=== PATIENT | male | born 1945 | race Caucasian/White ===

== ENCOUNTER 2017-09-06 09:19 | Emergency (ER) | payer OTHER ==
[~2017-09-06] VITALS: Wt 90.7 kg
--- NOTE | ~2017-09-06 | HM ---
[place], [place] HOLTER MONITOR REPORT NAME: SHAD CARRERO UNIT #: [id number] ROOM: DOCTOR: KARMA PANTOJA MD BIRTHDATE: [birth year] DOS: 09/06/2017 HOLTER MONITOR REPORT AGE: 71. SEX: Male. RECORDING TIME: 47 hours and 59 minutes. FINDINGS: Baseline rhythm is normal sinus rhythm, average heart rate was 54, maximum heart rate 98 and minimum heart rate 35 at 6:55 a.m. Atrial fibrillation burden was 0%. No significant pauses were noted. No significant supraventricular tachycardia or ventricular tachycardia was noted. There were occasional ventricular ectopy and its burden is about 2.5%. He also has occasional supraventricular complexes (SVE burden is 1.7%). No significant arrhythmias or pauses noted on this Holter monitor. Karma Pantoja MD CM:HOLTER:HOLTER MONITOR REPORT [id number] KARMA PANTOJA MD
[~2017-09-06 09:19] MED LIST: ADVAIR 250/501 EA INH; AMOXICILLIN500 MG PO; EC NAPROSYN500 MG PO; LISINOPRIL/HCTZ1 TA5 PO; VITAMIN D2000 IU PO; ZITHROMAX500 MG PO; ZYRTEC10 MG PO
[2017-09-06] MEDS ORDERED: CLONIDINE HCL0.2 MG PO (09:26)
[2017-09-06] MEDS ORDERED: LISINOPRIL40 MG PO (09:27)
[2017-09-06] MEDS ORDERED: ATORVASTATIN CA10 M1 PO (09:27)
[2017-09-06] MEDS ORDERED: AMLODIPINE BESY10 MG PO (09:27)
[2017-09-06] MEDS ORDERED: HYDROCHLOROTHIA25 M1 PO (09:27)
[2017-09-06 09:51] LABS: BASO # 0.1 10*3/uL (0.0-0.1); EOS # 0.1 10*3/uL (0.0-0.4); EOS % 1.4 % (1.0-4.0); HEMATOCRIT 41.1 % (42.0-52.0); HEMOGLOBIN 13.8 g/dl (14.0-18.0); LYMPH # 2.3 10*3/uL (1.3-4.4); MEAN CELL VOLUME 96.7 fl (80.0-94.0); MEAN CORPUSCULAR HGB 32.5 pg (27.0-31.0); MEAN CORPUSCULAR HGB CONC 33.6 g/dl (33.0-37.0); MEAN PLATELET VOLUME 11.4 fl (9.6-12.3); MONO # 0.6 10*3/uL (0.1-1.0); MONO % 7.6 % (3.0-9.0); NEUT # 4.2 10*3/uL (2.3-7.9); NEUT % 57.7 % (47.0-73.0); PLATELET COUNT AUTOMATED 180 10*3/uL (130-400); RED BLOOD COUNT 4.25 10*6/uL (4.50-5.90); RED CELL DISTRI WIDTH 12.3 % (0-14.5); WHITE BLOOD COUNT 7.2 10*3/uL (4.8-10.8)
[2017-09-06 09:59] LABS: ACT PARTIAL THROMBO TIME 24.7 SECONDS (20.8-31.5); INTERNATIONAL NORM RATIO 1.1 (2.0-3.5)
[2017-09-06 10:06] LABS: ALBUMIN 3.6 gm/dl (3.1-4.5); ALKALINE PHOSPHATASE 60 U/L (45-117); BUN 20 mg/dl (7-24); CHLORIDE 107 mmol/L (98-107); CREATININE 1.31 mg/dL (0.70-1.30); SGOT/AST 14 IU/L (3-35); SGPT/ALT 16 U/L (12-78); SODIUM 138 mmol/L (136-145); TOTAL PROTEIN 6.7 gm/dL (6.4-8.2)
[2017-09-06 11:50] LABS: BILIRUBIN NEGATIVE (NEGATIVE); BLOOD NEGATIVE (NEGATIVE); CLARITY CLEAR (CLEAR); COLOR YELLOW (YELLOW); GLUCOSE NEGATIVE (NEGATIVE); KETONE NEGATIVE (NEGATIVE); LEUKO ESTERASE NEGATIVE (NEGATIVE); NITRITE NEGATIVE (NEGATIVE); PH 5.5 (5.0-9.0); UROBILINOGEN 0.2 E.U./dl (0.2-1.0)
[2017-09-06 12:16] LABS: BACTERIA TRACE; MUCOUS 1+
== END 2017-09-06 12:16 | disposition home or self-care (01) ==
LOC: ED 09:19
PROVIDERS: Emergency Medicine
DX: R55 Syncope and collapse (principal); Z98.890 Other specified postprocedural states; Z79.899 Other long term (current) drug therapy

== ENCOUNTER → 2019-11-08 | Outpatient (CLI) | payer OTHER ==
[~2019-11-08] MED LIST changes: +AMLODIPINE BESY10 MG PO; +ATORVASTATIN CA10 M1 PO; +CLONIDINE HCL0.2 MG PO; +HYDROCHLOROTHIA25 M1 PO; +LISINOPRIL40 MG PO
== END | disposition home or self-care (01) ==
LOC: RAD 10:14
PROVIDERS: ATTEND Family Medicine
DX: J44.9 Chronic obstructive pulmonary disease, unspecified (principal)

== ENCOUNTER 2020-10-10 13:38 | Emergency (ER) | payer OTHER ==
[~2020-10-10] VITALS: Ht 190.5 cm; Wt 83.9 kg
[2020-10-10 14:15] LABS: BASO # 0.1 10*3/uL (0.0-0.1); BASO % 0.7 % (0.0-1.0); EOS # 0.1 10*3/uL (0.0-0.4); EOS % 0.7 % (1.0-4.0); HEMATOCRIT 44.9 % (42.0-52.0); LYMPH # 2.6 10*3/uL (1.3-4.4); MEAN CORPUSCULAR HGB 31.9 pg (27.0-31.0); MEAN CORPUSCULAR HGB CONC 34.3 g/dl (33.0-37.0); MEAN PLATELET VOLUME 10.8 fl (9.6-12.3); MONO # 0.7 10*3/uL (0.1-1.0); MONO % 7.2 % (3.0-9.0); NEUT # 6.1 10*3/uL (2.3-7.9); NEUT % 64.2 % (47.0-73.0); PLATELET COUNT AUTOMATED 288 10*3/uL (130-400); RED BLOOD COUNT 4.83 10*6/uL (4.50-5.90); RED CELL DISTRI WIDTH 12.4 % (0-14.5); WHITE BLOOD COUNT 9.5 10*3/uL (4.8-10.8)
[2020-10-10 14:32] LABS: ALKALINE PHOSPHATASE 81 U/L (45-117); BUN 38 mg/dl (7-24); CHLORIDE 104 mmol/L (98-107); CREATININE 1.73 mg/dL (0.70-1.30); POTASSIUM 4.2 mmol/L (3.5-5.1); SGOT/AST 21 IU/L (3-35); SGPT/ALT 40 U/L (12-78); SODIUM 136 mmol/L (136-145); TOTAL PROTEIN 7.8 gm/dL (6.4-8.2)
[2020-10-10 14:33] LABS: TROPONIN I < 0.015 ng/ml (<0.045)
[2020-10-10] MEDS ORDERED: PREDNISONE50 MG PO (15:52)
[2020-10-10] MEDS ORDERED: LEVOFLOXACIN500 MG PO (15:52)
[2020-10-10] MEDS ORDERED: PROAIR HFA8.5 GM INH (15:52)
== END 2020-10-10 16:14 | disposition home or self-care (01) ==
LOC: ED 13:38
PROVIDERS: Student in an Organized Health Care Education/Training Program
DX: J44.1 Chronic obstructive pulmonary disease with (acute) exacerbation (principal); Z87.891 Personal history of nicotine dependence; Z79.899 Other long term (current) drug therapy

== ENCOUNTER → 2021-02-11 | Outpatient (CLI) | payer OTHER ==
[~2021-02-11] MED LIST changes: +LEVOFLOXACIN500 MG PO; +PREDNISONE50 MG PO; +PROAIR HFA8.5 GM INH
== END | disposition home or self-care (01) ==
LOC: US 00:18
PROVIDERS: ATTEND Internal Medicine Nephrology
DX: N40.0 Benign prostatic hyperplasia without lower urinary tract symptoms (principal); N18.32 Chronic kidney disease, stage 3b

== ENCOUNTER → 2021-07-07 | Outpatient (CLI) | payer OTHER | END | disposition home or self-care (01) | LOC: US 00:20 | PROVIDERS: ATTEND Internal Medicine | DX: I71.4 Abdominal aortic aneurysm, without rupture (principal) ==

== ENCOUNTER → 2021-09-02 | Outpatient (CLI) | payer OTHER | END | disposition home or self-care (01) | LOC: CARD 00:03 | PROVIDERS: ATTEND Internal Medicine | DX: R00.1 Bradycardia, unspecified (principal) ==

== ENCOUNTER → 2021-12-23 | Outpatient (CLI) | payer OTHER | END | disposition home or self-care (01) | LOC: RAD 09:57 | PROVIDERS: ATTEND Internal Medicine | DX: M79.89 Other specified soft tissue disorders (principal) ==

== ENCOUNTER → 2022-03-25 | Outpatient (CLI) | payer OTHER ==
[2022-03-25 17:21] LABS: BUN 20 mg/dl (9-23); CHLORIDE 101 mmol/L (98-107); POTASSIUM 3.8 mmol/L (3.4-5.1)
== END | disposition home or self-care (01) ==
LOC: LAB 15:34
PROVIDERS: ATTEND Internal Medicine
DX: U07.1 COVID-19 (principal)

== ENCOUNTER 2022-12-20 15:08 | Emergency (ER) | payer OTHER ==
[~2022-12-20] VITALS: Ht 195.5 cm; Wt 95.3 kg
[2022-12-20 15:53] LABS: BASO # 0.1 10*3/uL (0.0-0.1); BASO % 0.9 % (0.0-1.0); EOS # 0.1 10*3/uL (0.0-0.4); EOS % 0.7 % (1.0-4.0); HEMATOCRIT 43.1 % (42.0-52.0); LYMPH # 1.5 10*3/uL (1.3-4.4); LYMPH % 20.5 % (27.0-41.0); MEAN CELL VOLUME 93.9 fl (80.0-94.0); MEAN CORPUSCULAR HGB CONC 34.1 g/dl (33.0-37.0); MEAN PLATELET VOLUME 10.5 fl (9.6-12.3); MONO # 0.5 10*3/uL (0.1-1.0); MONO % 6.8 % (3.0-9.0); NEUT # 5.2 10*3/uL (2.3-7.9); PLATELET COUNT AUTOMATED 257 10*3/uL (130-400); RED BLOOD COUNT 4.59 10*6/uL (4.50-5.90); RED CELL DISTRI WIDTH 12.4 % (0-14.5); WHITE BLOOD COUNT 7.4 10*3/uL (4.8-10.8)
[2022-12-20 16:16] LABS: POTASSIUM 4.1 mmol/L (3.4-5.1)
== END 2022-12-20 17:14 | disposition home or self-care (01) ==
LOC: ED 15:08
PROVIDERS: Emergency Medicine
DX: S01.01XA Laceration without foreign body of scalp, initial encounter (principal); S09.90XA Unspecified injury of head, initial encounter; R55 Syncope and collapse; I10 Essential (primary) hypertension; Z98.890 Other specified postprocedural states; J44.9 Chronic obstructive pulmonary disease, unspecified; W19.XXXA Unspecified fall, initial encounter; Y93.89 Activity, other specified; Y92.512 Supermarket, store or market as the place of occurrence of the external cause; Y99.8 Other external cause status